=== PATIENT | female | born 1950 | race Caucasian/White ===

== ENCOUNTER → 2017-09-28 | Outpatient (CLI) | payer MEDICARE, BC ==
[~2017-09-28] MED LIST: BIOT5000 PO; BIOTCAP PO; CALC1TAB12 PO; CALC500T42 PO; CHEL50TA PO; CYAN100025 SL; FERR325T18 PO; LEVO125T4 PO; LEVO150T7 PO; LUTE20TA PO; LUTE6CAP2 PO; MAGN500T2 PO; MIRA3350 PO; MULT-65 PO; POLY119S PO; STOO100T PO; TAB-TAB PO; VITA10002 PO; VITA400T14 PO; VITA500T83 PO; VITA80005 PO; ZINC50TA2 PO; [UNRECOGNIZED DRUG - CODE] PO
[2017-09-28 09:36] LABS: AUTOMATED NEUTROPHIL # 2.8 TH/MM3 (1.8-7.7); BASOPHIL # 0.1 TH/MM3 (0-0.2); BASOPHIL % 1.2 % (0.0-2.0); EOSINOPHIL # 0.1 TH/MM3 (0-0.4); EOSINOPHIL % 2.1 % (0.0-4.0); HEMATOCRIT 42.2 % (35.0-46.0); HEMO FLAGS DIFF FINAL; LYMPH % 31.2 % (9.0-44.0); LYMPHOCYTE # 1.5 TH/MM3 (1.0-4.8); MEAN CELL VOLUME 90.8 FL (80.0-100.0); MEAN CORPUSCULAR HEMOGLOBIN 30.4 PG (27.0-34.0); MEAN CORPUSCULAR HGB CONC 33.5 % (32.0-36.0); MONO % 8.6 % (0.0-8.0); NEUT % 56.9 % (16.0-70.0); PLATELET COUNT 159 TH/MM3 (150-450); RED BLOOD COUNT 4.65 MIL/MM3 (4.00-5.30); RED CELL DISTRIBUTION WIDTH 14.2 % (11.6-17.2); WHITE BLOOD COUNT 4.9 TH/MM3 (4.0-11.0)
[2017-09-28 09:59] LABS: ALT (GPT) 83 U/L (10-53); ANION GAP 6 MEQ/L (5-15); AST (GOT) 44 U/L (15-37); BLOOD UREA NITROGEN 18 MG/DL (7-18); CHLORIDE 108 MEQ/L (98-107); GLOMERULAR FILTRATION RATE 101 ML/MIN (>89); GLUCOSE,FASTING 92 MG/DL (74-99); SODIUM (NA) 142 MEQ/L (136-145)
[2017-09-28 10:02] LABS: ALKALINE PHOSPHATASE 120 U/L (45-117); TOTAL BILIRUBIN ADULT 0.3 MG/DL (0.2-1.0)
--- NOTE | 2017-09-28 10:15 | RADRPT ---
EXAM DATE/TIME: 09/28/2017 09:38 [facility] COMPARISON: No previous studies available for comparison. INDICATIONS : Evaluate for pneumonia, pneumothorax or communicable disease. Pre-op for knee surgery. MEDICAL HISTORY : None. SURGICAL HISTORY : None. ENCOUNTER: Initial ACUITY: 1 day PAIN SCORE: 0/10 LOCATION: Bilateral chest FINDINGS: PA and lateral views of the chest demonstrate the lungs to be symmetrically aerated without evidence of mass, infiltrate or effusion. The cardiomediastinal contours are unremarkable. Osseous structure s are intact. CONCLUSION: Normal examination for a patient of this age. Jovi Cho MD on September 28, 2017 at 10:13 Board Certified Radiologist. This report was verified electronically.
[2017-09-28 10:54] LABS: BLOOD, URINE NEG (NEG); GLUCOSE,URINE NEG (NEG); KETONE, URINE NEG (NEG); MUCUS URINE FEW /lpf (OCC); NITRITE,URINE NEG (NEG); PH, URINE 5.5 (5.0-8.5); URINE COLOR YELLOW (YELLW/STRAW)
[2017-09-28 10:56] LABS: COMMENT (UR) CULT NOT INDICATED; CULTURE IF INDICATED CULT NOT INDICATED
--- NOTE | 2017-09-29 09:30 | EKG ---
Date Performed: 09/28/2017 Time Performed: 09:00:02 PTAGE: 66 years EKG: Sinus rhythm . Normal ECG NO PREVIOUS TRACING DOCTOR: Zak Yoon Interpretating Date/Time 09/29/2017 09:29:04
== END ==
LOC: CPRE 08:32
PROVIDERS: ATTEND Orthopaedic Surgery
DX: Z01.810 Encounter for preprocedural cardiovascular examination (principal); Z01.811 Encounter for preprocedural respiratory examination; Z01.812 Encounter for preprocedural laboratory examination; M17.12 Unilateral primary osteoarthritis, left knee
CPT/HCPCS: 36415; 71020; 80053; 81001; 85025; 93005

== ENCOUNTER 2017-10-17 05:32 | Inpatient (IN) | payer MEDICARE, BC ==
[~2017-10-17] VITALS: Ht 165.1 cm; Wt 85.7 kg
[~2017-10-17 05:32] MED LIST changes: -BIOT5000 PO; -CALC500T42 PO; -CHEL50TA PO; -LEVO150T7 PO; -LUTE20TA PO; -POLY119S PO; -STOO100T PO; -TAB-TAB PO; -VITA10002 PO; -VITA400T14 PO; -VITA80005 PO
[2017-10-17] MEDS ORDERED: METOPROLOL TARTRATE 25 MG TAB PO PRN (06:00)
[2017-10-17] MEDS ORDERED: ceFAZolin 2 GM PREMIX 50 ML IV SCH (06:00)
[2017-10-17] MEDS ORDERED: CHLORHEXIDINE GLUCONATE 2 % 1 PACK (2 CLOTHS) TOPICAL PRN (06:00)
[2017-10-17] MEDS ORDERED: POVIDONE IODINE 7.5% SCRUB 118 ML BOTTLE TOPICAL SCH (06:00)
[2017-10-17] MEDS ORDERED: SODIUM CHLORID 0.9% 500 ML IV PRN (06:00)
[2017-10-17] MEDS ORDERED: LACTATED RINGER'S 1000 ML IV PRN (06:00)
[2017-10-17] MEDS ORDERED: POVIDONE IODINE 5% (ANTISEPSIS KIT) 4 APPLICATIONS EACH NARE PRN (06:00)
[2017-10-17] MEDS ORDERED: GENTAMICIN SULFATE 80 MG/2 ML VIAL ONE (06:03)
[2017-10-17] MEDS ORDERED: TOBRAMYCIN 1200 MG VIAL (ortho-sterile core) ONE (06:03)
[2017-10-17] MEDS ORDERED: CHOL1CAP34 PO (06:06)
[2017-10-17] MEDS ORDERED: ACETAMINOPHEN 1000 MG/100 ML 100 ML IV ONE (06:52)
[2017-10-17] MEDS ORDERED: MIDAZOLAM HCL 2 MG/2 ML VIAL ONE (06:52)
[2017-10-17] MEDS ORDERED: FAMOTIDINE 20 MG/2 ML VIAL ONE (06:52)
[2017-10-17] MEDS ORDERED: BUPIVACAINE LIPOSOME PF 1.3% 20 ML VIAL ONE (06:54)
[2017-10-17] MEDS: VANCOMYCIN 1250 MG/NS 250 ML (for 70-84 kg) IV SCH ×4 (07:18→08:09)
[2017-10-17] MEDS ORDERED: TRANEXAMIC ACID INJ 857 MG in SODIUM CHLORIDE 0.9% INJ 100 ML IV SCH ×2 (07:30→10:30)
[2017-10-17] MEDS ORDERED: BUPIVACAINE LIPOSO PF 1.3% INJ 20 ML in SODIUM CHLORIDE 0.9% INJ 60 ML P-ARTICULR SCH (09:30)
[2017-10-17] MEDS ORDERED: TRANEXAMIC ACID INJ 0 MG in SODIUM CHLORIDE 0.9% INJ 100 ML IV SCH (10:15)
[2017-10-17] MEDS ORDERED: DO NOT ADM ANY ANTICOAGULANT DRUGS PRN (10:23)
[2017-10-17] MEDS ORDERED: TRAM50 PO (10:23)
[2017-10-17] MEDS ORDERED: HYDR-3516 PO (10:23)
[2017-10-17] MEDS ORDERED: ASA325 PO (10:23)
[2017-10-17] MEDS ORDERED: ACETAMINOPHEN/HYDROcodone 325 MG/5 MG TAB PO PRN (10:30)
[2017-10-17] MEDS ORDERED: *ONDANSETRON 4 MG VIAL PERIprocedural Use ONLY ONE (10:42)
[2017-10-17] MEDS ORDERED: ONDANSETRON HCL 4 MG/2 ML VIAL IVP PRN (10:45)
--- NOTE | 2017-10-17 10:59 | MP ---
cc: BEL WILLIAM DATE OF SURGERY 10/17/2017 PREOPERATIVE DIAGNOSIS Osteoarthritis left knee. POSTOPERATIVE DIAGNOSIS Osteoarthritis left knee. OPERATIVE PROCEDURE Total knee replacement arthroplasty left knee using Biomet vanguard cemented components. IMPLANTS Femur 67.5-mm left, tibia 71-mm with I-beam stem, patella small, polyethylene 12-mm standard insert. SURGEON Dr. William ANESTHESIA General. TECHNIQUE After induction of general anesthesia and adductor block, the left lower extremity was thoroughly prepped with alcohol and ChloraPrep and draped in routine fashion. After application of the Esmarch bandage, the tourniquet was inflated to 300 mmHg. A midline incision was made slightly medial to midline to avoid the prominent tibial tubercle. Incision was deepened through the subcutaneous tissue and medial parapatellar arthrotomy incision was carried out. There was obvious osteoarthritis of the patellofemoral joint with a somewhat enlarged and deformed anterior surface of the femur and flattened lateral facet of the patella. Limited medial dissection was carried out reflecting the medial structures off the tibia, some minimal osteophytes removed. The knee joint was debrided. The femoral canal was opened anterior to the posterior cruciate ligament and the distal femoral cutting guide set at 60 degrees was used to make the distal femoral cut. Proximal tibial cut was made referencing 6-mm from the medial tibial plateau in neutral and the coronal plane and slight inclination of the sagittal plane. Epicondylar axes were marked and the AP cuts and chamfer cuts were made in 5 degrees of external rotation matching the epicondyles in a vertical line, Whitesides line. Once the joint was debrided femoral tibial alignment was checked and was found to be okay. A spacer block was now used and it is tight both in flexion and extension, therefore an additional 4-mm of tibia was taken out using the appropriate guides. We now fit the 10-mm spacer block very nicely. The bony surfaces were prepared for the trial implants and they were placed and with the 12-mm insert everything looks good in extension, mid-flexion and 90-degree flexion. Patella was prepared following routine technique. The lateral margin of the patella was excised about 5 mm. A small patellar trial was placed it tracks very nicely with no need for any lateral release. Trial components were all removed followed by lavage and suctioning of the joint. Exparel diluted with saline was injected all around the joint, the femoral canal plugged with bone. Using 2 units of Simplex cement the implants were cemented in starting with tibia, then the femur, then the patella. The knee was extended followed by release of tourniquet. A solution 100 mL of saline mixed with 17.5 mL of Betadine was placed in the joint and left for 3 minutes during cement solidification. The joint was thoroughly lavaged and suctioned out and once cement solidified the joint was noted to be in good shape. All excess bone and cement were removed. A 12-mm insert was placed and clipped. Hemovac drain was placed in the suprapatellar pouch and closure was carried out in mid-flexion with three interrupted #2 Vicryl sutures and the rest with #2 Quill, the subcutaneous tissue closed with 2-0 Vicryl, the skin closed with subcuticular 3-0 Quill and Steri-Strips. Dressings applied with silver impregnated super-absorbent dressing wrapped with ice bladder, Sof-Rol and Karri bandage. Hemovac clamped. The patient was transferred to the recovery room in satisfactory condition. The patient tolerated the procedure well. COUNTS AND COMPLICATIONS None. POSTOPERATIVE CONDITION Satisfactory. PROGNOSIS Good. ESTIMATED BLOOD LOSS 150. MD KAYE Melendez/KEV /10:12 AM /10:22 AM
[2017-10-17] MEDS ORDERED: diphenhydrAMINE HCL 50 MG/ML VIAL IV PUSH PRN (11:00)
[2017-10-17] MEDS ORDERED: POLYETHYLENE GLYCOL 17 GM PKG PO PRN (11:00)
[2017-10-17] MEDS ORDERED: KETOROLAC TROMETHAMINE 30 MG/ML (IVP) VIAL IVP SCH (11:00)
[2017-10-17] MEDS: ASPIRIN 325 MG TAB PO SCH (11:00)
[2017-10-17] MEDS ORDERED: Post-op Orders (for Pharmacy) XX ONE (11:00)
[2017-10-17] MEDS ORDERED: ACETAMINOPHEN 1000 MG/100 ML VIAL IV SCH (11:00)
[2017-10-17] MEDS ORDERED: NALOXONE HCL 0.4 MG/ML AMP IV PUSH PRN (11:00)
[2017-10-17] MEDS: MORPHINE SULFATE 30 MG/30 ML PCA IV SCH (11:02)
[2017-10-17] MEDS: SODIUM CHLOR 0.9% 1000 ML INJ 1,000 ML IV SCH ×2 (11:07→20:52)
--- NOTE | 2017-10-17 11:12 | RADRPT ---
EXAM DATE/TIME: 10/17/2017 10:47 [facility] COMPARISON: No previous studies available for comparison. INDICATIONS : Post op left knee surgery. MEDICAL HISTORY : None. SURGICAL HISTORY : None. ENCOUNTER: Initial ACUITY: 1 day PAIN SCORE: 8/10 LOCATION: Left Knee. FINDINGS: AP and lateral views of the knee following arthroplasty reveals a prosthesis in anatomic alignment. F racture is not appreciated. Surgical drain is evident CONCLUSION: Status post total knee arthroplasty. Gui Lane MD FACR Board Certified Radiologist. This report was verified electronically.
[2017-10-17] MEDS ORDERED: DEXAMETHASONE SOD PHOS 4 MG/ML VIAL IV ONE (12:00)
[2017-10-17] MEDS ORDERED: ePHEDrine/NS 25 MG/5 ML SYRINGE IV ONE (12:00)
[2017-10-17] MEDS ORDERED: CHOLECALCIFEROL (VIT D3) 5000 UNIT CAP PO SCH (12:00)
[2017-10-17] MEDS ORDERED: KETOROLAC TROMETHAMINE 30 MG/ML (IVP) VIAL IV PUSH ONE (12:00)
[2017-10-17] MEDS ORDERED: ROCURONIUM INJ 50 MG/5 ML SYRINGE IV PUSH ONE (12:00)
[2017-10-17] MEDS ORDERED: ONDANSETRON HCL 4 MG/2 ML VIAL IV ONE (12:00)
[2017-10-17] MEDS ORDERED: LIDOCAINE HCL 1% PF 5 ML SYRINGE OTHER ONE (12:00)
[2017-10-17] MEDS ORDERED: PHENYLEPH/NS 1000 MCG/10 ML SYR IV ONE (12:00)
[2017-10-17] MEDS ORDERED: PROPOFOL 200 MG/20 ML AMP IV ONE (12:00)
[2017-10-17] MEDS ORDERED: GLYCOPYRROLATE 1 MG/5 ML SYRINGE IV PUSH ONE (12:00)
[2017-10-17] MEDS ORDERED: LACTATED RINGER'S 1000 ML INJ 1,000 ML IV ONE (12:00)
[2017-10-17] MEDS ORDERED: NEOSTIGMINE 5 MG/5 ML SYRINGE IV PUSH ONE (12:00)
[2017-10-17] MEDS ORDERED: SODIUM CHLORIDE 0.9% 20 ML VIAL IV ONE (12:00)
[2017-10-17 12:40] VITALS: BP 121/65; PULSE 80; RESP 20; TEMP 96.2; O2SAT 99
[2017-10-17] MEDS: ceFAZolin 2 GM PREMIX 50 ML IV SCH ×2 (14:04→22:53)
[2017-10-17] MEDS ORDERED: CEFAZOLIN INJ 2,000 MG in SODIUM CHLORIDE 0.9% INJ 100 ML IV SCH (15:00)
[2017-10-17] MEDS: KETOROLAC TROMETHAMINE 30 MG/ML (IVP) VIAL IVP SCH (17:23)
[2017-10-17] MEDS: ACETAMINOPHEN 1000 MG/100 ML VIAL IV SCH (18:35)
[2017-10-17] MEDS ORDERED: VANCOMYCIN INJ 1,250 MG in SODIUM CHLOR 0.9% 250 ML INJ 250 ML IV SCH ×2 (20:00→22:00)
[2017-10-17 20:10] VITALS: BP 96/54; PULSE 62; RESP 18; TEMP 98.1; O2SAT 99
[2017-10-17] MEDS ORDERED: TEMAZEPAM 15 MG CAP PO PRN (21:00)
[2017-10-17 23:40] VITALS: BP 91/47; PULSE 68; RESP 18; TEMP 96.8; O2SAT 96
[2017-10-18] MEDS: KETOROLAC TROMETHAMINE 30 MG/ML (IVP) VIAL IVP SCH ×3 (01:00→18:05)
[2017-10-18] MEDS: MORPHINE SULFATE 30 MG/30 ML PCA IV SCH (03:30)
[2017-10-18 03:43] VITALS: BP 92/44; PULSE 78; RESP 18; TEMP 97.2; O2SAT 98
[2017-10-18 04:53] LABS: HEMATOCRIT 30.9 % (35.0-46.0); HEMOGLOBIN 10.1 GM/DL (11.6-15.3)
[2017-10-18 05:10] LABS: BICARBONATE 28.4 MEQ/L (21.0-32.0); CREATININE 0.55 MG/DL (0.50-1.00)
[2017-10-18] MEDS: SODIUM CHLOR 0.9% 1000 ML INJ 1,000 ML IV SCH ×2 (05:55→16:45)
[2017-10-18] MEDS: LEVOTHYROXINE SODIUM 125 MCG TAB PO SCH (05:55)
[2017-10-18] MEDS: ceFAZolin 2 GM PREMIX 50 ML IV SCH (05:58)
[2017-10-18] MEDS: ACETAMINOPHEN 1000 MG/100 ML VIAL IV SCH ×2 (06:01→18:05)
--- NOTE | 2017-10-18 07:32 | PD.ORT.PN ---
Subjective Post Op Day #: 1 Pain Scale: 3 Subjective Remarks Great, so much better than right tka Distance Walked up to bathroom etc Objective Vitals This is a 67 year old female patient Vital Signs Date Time Temp Pulse Resp B/P (MAP) Pulse Ox O2 Delivery O2 Flow Rate FiO2 10/18/17 03:43 97.2 78 18 92/44 (60) 98 10/18/17 03:35 18 10/18/17 03:30 18 10/17/17 23:40 96.8 68 18 91/47 (62) 96 10/17/17 20:10 98.1 62 18 96/54 (68) 99 10/17/17 12:40 96.2 80 20 121/65 (83) 99 10/17/17 11:30 97.6 81 13 116/59 (78) 100 Nasal Cannula 2 10/17/17 11:15 71 12 117/53 (74) 100 Nasal Cannula 2 10/17/17 11:02 15 10/17/17 11:00 74 19 107/55 (72) 96 Nasal Cannula 2 10/17/17 10:45 73 19 107/49 (68) 96 Nasal Cannula 2 10/17/17 10:30 83 15 120/58 (78) 96 Simple Mask 6 10/17/17 10:26 98.2 88 14 113/53 (73) 97 Simple Mask 6 I/O 10/17/17 10/17/17 10/17/17 10/18/17 10/18/17 10/18/17 07:00 15:00 23:00 07:00 15:00 23:00 Intake Total 2507 ml 490 ml 240 ml Output Total 3150 ml 50 ml 25 ml Balance -643 ml 440 ml 215 ml Intake Oral 720 ml 240 ml 240 ml IV Total 1787 ml 250 ml Output Drainage Total 50 ml 25 ml Estimated Blood Loss 150 ml Other 3000 ml # Voids 3 2 # Bowel Movements 0 0 Result Diagram: 10/18/1740310/18/17 040 Imaging Last 24 hours Impressions Knee X-Ray 10/17/17 1009 Signed Impressions: Service Date/Time: Tuesday, October 17, 2017 10:47 - CONCLUSION: Status post total knee arthroplasty. Gui Lane MD Objective Remarks A,A, and O Able to SLR and bend knee Moves toes well, drain out Assessment & Plan Ortho Post Op Day #: 1 Problem List: Assessment and Plan POD 1 left TKA DC home tomorrow with [facility] Augusto William MD Oct 18, 2017 07:32
--- NOTE | 2017-10-18 07:35 | HHI.FF ---
Face to Face Verification Diagnosis: (1) Total knee replacement status Physical Therapy Gait training Knee: Total knee, Protocol: Left, Full weight bearing Left LE Range of Motion: Active Assistive ROM (monitor dressing ,VS etc. start dressing change 10/23/16) Nursing Nursing: Dressing changes (start drsg change 10/23/16. Monitor knee status , VS etc) I have seen patient Kathy Beaulieu on 10/18/17. My clinical findings support the need for the requested home health care services because: Limited ability to care for self I certify that my clinical findings support that this patient is homebound because: Unsafe to leave home unassisted Unable to use public transportation Augusto William MD Oct 18, 2017 07:35
[2017-10-18] MEDS ORDERED: ADJUSTABLE COMM1 MIS (07:37)
[2017-10-18] MEDS ORDERED: WALKER WHEELS/F1 MIS (07:37)
[2017-10-18 08:00] VITALS: BP 107/50; PULSE 86; RESP 17; TEMP 99.5; O2SAT 97
[2017-10-18] MEDS ORDERED: NON-FORMULARY DRUG (Ascorbic Acid ER (Vitamin C ER) 500 MG) PO SCH (09:00)
[2017-10-18] MEDS ORDERED: NON-FORMULARY DRUG (Biotin 5 MG) PO SCH (09:00)
[2017-10-18] MEDS ORDERED: VITAMIN A PO SCH (09:00)
[2017-10-18] MEDS: CALCIUM/VITAMIN D 250 MG/125 U TAB PO SCH (09:16)
[2017-10-18] MEDS: CYANOCOBALAMIN 1,000 MCG TAB PO SCH (09:16)
[2017-10-18] MEDS: MULTIVITAMIN TAB PO SCH (09:16)
[2017-10-18] MEDS: FERROUS SULFATE 325 MG (65 MG ELEMENTAL IRON) TAB PO SCH (09:16)
[2017-10-18] MEDS: traMADol HCL 50 MG TAB PO PRN ×2 (09:27→18:04)
[2017-10-18] MEDS: ASPIRIN 325 MG TAB PO SCH (10:48)
[2017-10-18 12:00] VITALS: BP 87/47; PULSE 75; RESP 17; TEMP 97.3; O2SAT 96
[2017-10-18 16:00] VITALS: BP 102/49; PULSE 75; RESP 17; TEMP 97.6; O2SAT 98
[2017-10-18 20:18] VITALS: O2SAT 95
[2017-10-18 20:30] VITALS: BP 93/53; PULSE 76; RESP 18; TEMP 97.6; O2SAT 97
[2017-10-18] MEDS: DOCUSATE SODIUM 100 MG CAP PO SCH (21:00)
[2017-10-19 00:35] VITALS: BP 124/55; PULSE 87; RESP 20; TEMP 98.5; O2SAT 98
[2017-10-19] MEDS: DOCUSATE SODIUM 100 MG CAP PO SCH ×2 (00:36→09:07)
[2017-10-19] MEDS: KETOROLAC TROMETHAMINE 30 MG/ML (IVP) VIAL IVP SCH ×2 (00:36→09:07)
[2017-10-19] MEDS: SODIUM CHLOR 0.9% 1000 ML INJ 1,000 ML IV SCH (00:37)
[2017-10-19] MEDS: LEVOTHYROXINE SODIUM 125 MCG TAB PO SCH (06:24)
[2017-10-19] MEDS: ACETAMINOPHEN 1000 MG/100 ML VIAL IV SCH (06:25)
--- NOTE | 2017-10-19 07:46 | PD.ORT.PN ---
Subjective Post Op Day #: 2 Pain Scale: bad night Subjective Remarks Going home today? Objective Vitals Vital Signs Date Time Temp Pulse Resp B/P (MAP) Pulse Ox O2 Delivery O2 Flow Rate FiO2 10/19/17 00:35 98.5 87 20 124/55 (78) 98 10/18/17 20:30 97.6 76 18 93/53 (66) 97 10/18/17 20:18 95 21 10/18/17 16:00 97.6 75 17 102/49 (66) 98 10/18/17 12:00 97.3 75 17 87/47 (60) 96 10/18/17 08:00 99.5 86 17 107/50 (69) 97 I/O 10/18/17 10/18/17 10/18/17 10/19/17 10/19/17 10/19/17 07:00 15:00 23:00 07:00 15:00 23:00 Intake Total 240 ml 530 ml 480 ml 480 ml Output Total 25 ml Balance 215 ml 530 ml 480 ml 480 ml Intake Oral 240 ml 480 ml 480 ml 480 ml IV Total 50 ml Output Drainage Total 25 ml # Voids 2 3 3 3 # Bowel Movements 0 0 0 0 Result Diagram: 10/18/17 0404 10/18/17 0404 Imaging Last 24 hours Impressions Knee X-Ray 10/17/17 1009 Signed Impressions: Service Date/Time: Tuesday, October 17, 2017 10:47 - CONCLUSION: Status post total knee arthroplasty. Gui Lane MD Objective Remarks Dressings and drain still in. Nurse instructed to DC drain and check dressing RAMBO Moves toes well Able to SLR Assessment & Plan Ortho Post Op Day #: 2 Problem List: Assessment and Plan POD 2 left TKA DC home this afternoon [facility] arranged Rx for tramadol aspirin and hydrocodone Augusto William MD Oct 19, 2017 07:46
--- NOTE | 2017-10-19 07:52 | PD.ORT.PN ---
Subjective Subjective Remarks Going home today? Doing OK Range of Motion able to SLR Distance Walked to bathroom etc Objective Vitals Vital Signs Date Time Temp Pulse Resp B/P (MAP) Pulse Ox O2 Delivery O2 Flow Rate FiO2 10/19/17 00:35 98.5 87 20 124/55 (78) 98 10/18/17 20:30 97.6 76 18 93/53 (66) 97 10/18/17 20:18 95 21 10/18/17 16:00 97.6 75 17 102/49 (66) 98 10/18/17 12:00 97.3 75 17 87/47 (60) 96 10/18/17 08:00 99.5 86 17 107/50 (69) 97 I/O 10/18/17 10/18/17 10/18/17 10/19/17 10/19/17 10/19/17 07:00 15:00 23:00 07:00 15:00 23:00 Intake Total 240 ml 530 ml 480 ml 480 ml Output Total 25 ml Balance 215 ml 530 ml 480 ml 480 ml Intake Oral 240 ml 480 ml 480 ml 480 ml IV Total 50 ml Output Drainage Total 25 ml # Voids 2 3 3 3 # Bowel Movements 0 0 0 0 Result Diagram: 10/18/17 0404 10/18/17 0404 Imaging Last 24 hours Impressions Knee X-Ray 10/17/17 1009 Signed Impressions: Service Date/Time: Tuesday, October 17, 2017 10:47 - CONCLUSION: Status post total knee arthroplasty. Gui Lane MD Objective Remarks Dressings intact, mod swelling, Moves toes well Able to SLR Assessment & Plan Ortho Post Op Day #: 2 Problem List: Assessment and Plan POD 2 left TKA DC home this afternoon [facility] arranged Rx for tramadol aspirin and hydrocodone FU instructed Augusto William MD Oct 19, 2017 07:52
[2017-10-19 08:00] VITALS: BP 99/48; PULSE 84; RESP 18; TEMP 98.5; O2SAT 97
[2017-10-19] MEDS: CALCIUM/VITAMIN D 250 MG/125 U TAB PO SCH (09:06)
[2017-10-19] MEDS: ASPIRIN 325 MG TAB PO SCH (09:06)
[2017-10-19] MEDS: MULTIVITAMIN TAB PO SCH (09:07)
[2017-10-19] MEDS: FERROUS SULFATE 325 MG (65 MG ELEMENTAL IRON) TAB PO SCH (09:07)
[2017-10-19] MEDS: CYANOCOBALAMIN 1,000 MCG TAB PO SCH (09:07)
[2017-10-19 12:00] VITALS: BP 86/53; PULSE 79; RESP 18; TEMP 97.6; O2SAT 98
[2017-10-19 12:20] VITALS: BP 96/52; PULSE 77
== END 2017-10-19 13:18 | disposition home health service (06) | DRG 470 ==
LOC: HSDC 05:32 → EDSTATUS 07:30 → HSDI 10:14 → N06B 12:09
PROVIDERS: ADMIT Orthopaedic Surgery; ATTEND Orthopaedic Surgery
PROC: 3E0T3BZ Introduction of Anesthetic Agent into Peripheral Nerves and Plexi, Percutaneous Approach (ICD-10-PCS; 2017-10-17)
PROC: 0SRD0J9 Replacement of Left Knee Joint with Synthetic Substitute, Cemented, Open Approach (ICD-10-PCS; principal; 2017-10-17 07:23)
DX: M17.12 Unilateral primary osteoarthritis, left knee (principal); Z96.651 Presence of right artificial knee joint
CPT/HCPCS: 73560; 80048; 85014; 85018; 86850; 86900; 86901; 94150; C1776; C9290; J0131; J0690; J1100; J1580; J1885; J2250; J2270; J2370; J2405; J2710; J3010; J3370; J7030; J7050; J7120

== ENCOUNTER 2017-12-27 16:04 | Emergency (ER) | payer MEDICARE, BC ==
[~2017-12-27] VITALS: Ht 167.6 cm; Wt 83.0 kg
[~2017-12-27 16:04] MED LIST changes: +ADJUSTABLE COMM1 MIS; +ASA325 PO; +CHOL1CAP34 PO; +HYDR-3516 PO; +TRAM50 PO; +WALKER WHEELS/F1 MIS
[2017-12-27 16:19] VITALS: BP 128/65; PULSE 72; RESP 16; TEMP 98.1; O2SAT 99
--- NOTE | 2017-12-27 17:38 | PD ---
HPI Chief Complaint: Fall Time Seen by Provider: 17:25 Travel History International Travel<30 days: No Contact w/Intl Traveler<30days: No Traveled to known affect area: No History of Present Illness HPI 67-year-old female presents to the ED for evaluation of 8/10 left knee pain. Pain is throbbing, worsened by range of motion and weightbearing. Onset after the patient tripped over the curb and landed on her knee on the sidewalk. She denies hitting her head or loss of consciousness. She has been auditory since the fall. She denies giving way. She denies numbness, tingling, weakness, limitation to range of motion. She states that the knee was just replaced in October. PFSH Past Medical History Hx Anticoagulant Therapy: No Cancer: Yes (SKIN) Cardiovascular Problems: Yes (htn not at this time) Diabetes: Yes (diet controlled) Patient Takes Glucophage: No Gastrointestinal Disorders: Yes (gastric bypass) Genitourinary: Yes Hepatitis: No Hiatal Hernia: No Hypertension: No Immune Disorder: No Implanted Vascular Access Dvce: Yes Kidney Stones: Yes Medical other: No Musculoskeletal: Yes (ARTHRITIS) Neurologic: No Psychiatric: No Reproductive: No Respiratory: No Thyroid Disease: Yes ?: Not Past Surgical History Abdominal Surgery: Yes (FARHAT., APPEND., GASTRIC BYPASS- RNY) AICD: No Ear Surgery: No Endocrine Surgery: No Genitourinary Surgery: No Gynecologic Surgery: No Joint Replacement: Yes (RIGHT KNEE REPL; left knee replacement 2018) Neurologic Surgery: No Oral Surgery: Yes (TONSILS) Pacemaker: No Other Surgery: Yes Social History Alcohol Use: No Tobacco Use: No Substance Use: No Allergies-Medications (Allergen,Severity, Reaction): Coded Allergies: No Known Allergies (Unverified Allergy, Unknown, 12/27/17) Reported Meds & Prescriptions Reported Meds & Active Scripts Active Walker with Front Wheels (Device) 1 Mis Mis Ea .ROUTE DIRECTED Adjustable Commode 3-in-1 (Device) 1 Mis Mis Ea .ROUTE DIRECTED Reported Vitamin D3 (Cholecalciferol) 50,000 Unit Cap 50,000 Units PO Q7D Magnesium Oxide 500 Mg Tab 500 Mg PO DAILY Vitamin C ER (Ascorbic Acid) 500 Mg Melissa 500 Mg PO DAILY Zinc Gluconate 50 Mg Tab 50 Mg PO DAILY Vitamin A 25,000 Unit Capsule 1 Cap PO DAILY Multi-Vitamin Daily (Multiple Vitamin) 1 Tab Tab 1 Tab PO DAILY Lutein 6 Mg Cap 6 Mg PO DAILY Levothyroxine (Levothyroxine Sodium) 125 Mcg Tab 125 Mcg PO DAILY B-12 (Cyanocobalamin) 1,000 Mcg Subl 1,000 Mcg SL DAILY Calcium 500 +D (Calcium Carbonate-Cholecalciferol) 500-400 Mg-Unit Tab 1 Tab PO DAILY Biotin 5 Mg Cap 5 Mg PO DAILY Review of Systems Except as stated in HPI: all other systems reviewed are Neg Physical Exam Narrative GENERAL: Well-nourished, well-developed pleasant white female in no acute distress. SKIN: Focused skin assessment warm/dry. Superficial abrasion of the left knee and palmar aspect of the right hand. HEAD: Normocephalic. EYES: No scleral icterus. No injection or drainage. NECK: Supple, trachea midline. No JVD or lymphadenopathy. CARDIOVASCULAR: Regular rate and rhythm without murmurs, gallops, or rubs. RESPIRATORY: Breath sounds clear and equal bilaterally. No accessory muscle use. GASTROINTESTINAL: Abdomen soft, non-tender, nondistended. MUSCULOSKELETAL: No cyanosis, or edema. FOCUSED LEFT LOWER EXTREMITY EXAM: 2+ radial pulse. Well-healing midline surgical scar over the knee. Mild edema. Tenderness to palpation over the patella and joint lines. Tenderness to palpation of the popliteal area. Patient is able to extend the knee to 0 and flex almost to 90. Neurovascularly intact to light touch distally. BACK: Nontender without obvious deformity. No CVA tenderness. Data Data Last Documented VS Vital Signs Date Time Temp Pulse Resp B/P (MAP) Pulse Ox O2 Delivery O2 Flow Rate FiO2 12/27/17 16:19 98.1 72 16 128/65 (86) 99 Orders Orders Knee, Complete (4vws) (12/27/17 17:37) Ice/Cold Pack (12/27/17 17:37) Acetaminophen (Tylenol) (12/27/17 18:00) Tetanus/Diphtheria Tox Adult (Tetanus/Di (12/27/17 18:00) Ed Discharge Order (12/27/17 18:28) MDM Medical Decision Making Medical Screen Exam Complete: Yes Emergency Medical Condition: Yes Differential Diagnosis Knee pain versus contusion versus fracture versus dislocation versus effusion versus other Narrative Course 67-year-old female presents to the ED for evaluation of 8/10 left knee pain. Pain is throbbing, worsened by range of motion and weightbearing. Onset after the patient tripped over the curb and landed on her knee on the sidewalk. She state that the knee was replaced in October. Unsure of last tetanus immunization. On exam the patient has superficial abrasions on the knee and the palm of the right hand. Focused extremity exam reveals tenderness to palpation of the anterior aspect of the knee, joint lines and posterior aspect of the knee. No patellar balloting noted. Patient is able to extend to 0 and flex to just about 90. No tenderness to palpation or limitations or range of motion of the right hand or wrist. Tetanus immunization was updated. Patient was administered 500 mg ibuprofen. X-ray reveals joint effusion, otherwise unremarkable. Patient was provided with a copy of the x-ray and these were also sent to Dr. Meyer. Patient is to use RICE therapy, follow with the orthopedist this week. She is agreeable to this plan. She is stable and discharged home. Diagnosis Primary Impression: Fall Qualified Codes: W19.XXXA - Unspecified fall, initial encounter Additional Impression: Knee effusion, left Referrals: Augusto William MD Additional Instructions: Rest, ice, elevate the extremity. Apply ice no longer than 10-15 minutes per hour a few times a day. Return to normal, gentle activity as tolerated. No running, jumping activities for the next few weeks. Follow up with the orthopedist this week. Return to the ED for any urgent or emergent medical condition. Disposition: 01 DISCHARGE HOME Condition: Stable Klaudia Muniz Dec 27, 2017 17:38
[2017-12-27] MEDS ORDERED: ACETAMINOPHEN 500 MG CPLT PO ONE (18:00)
[2017-12-27] MEDS ORDERED: TETANUS/DIPHTHERIA TOXOID ADULT 0.5 ML VIAL IM ONE (18:00)
--- NOTE | 2017-12-27 18:16 | RADRPT ---
EXAM DATE/TIME: 12/27/2017 17:58 [facility] COMPARISON: No previous studies available for comparison. INDICATIONS : Left knee pain from fall today. MEDICAL HISTORY : None. SURGICAL HISTORY : Total knee replacement, left. ENCOUNTER: Initial ACUITY: 1 day PAIN SCORE: 8/10 LOCATION: Left knee. FINDINGS: Left total knee arthroplasty changes are again noted, appears intact and normally aligned. There is a nonspecific joint effusion. No fracture demonstrated. CONCLUSION: Nonspecific joint effusion. Intact left total knee arthroplasty. Maykel Skelton MD on December 27, 2017 at 18:11 Board Certified Radiologist. This report was verified electronically.
== END 2017-12-27 18:44 | disposition home or self-care (01) ==
LOC: PHED 16:04 → PHEFT 18:44
DX: M25.462 Effusion, left knee (principal); I10 Essential (primary) hypertension; E11.9 Type 2 diabetes mellitus without complications; S80.212A Abrasion, left knee, initial encounter; W01.0XXA Fall on same level from slipping, tripping and stumbling without subsequent striking against object, initial encounter; Y93.01 Activity, walking, marching and hiking; Z23 Encounter for immunization
CPT/HCPCS: 73564; 90471; 90714